=== PATIENT | female | born 1980 | race Caucasian/White ===

== ENCOUNTER 2023-12-30 21:52 | Inpatient (IN) | payer OTHER ==
[2023-12-30 22:29] VITALS: BMI 39.1
[2023-12-30] MEDS ORDERED: chlordiazePOXIDE HCL 25 MG CAPSULE PO PRN (22:53)
[2023-12-30] MEDS ORDERED: ONDANSETRON 8 MG TABLET (FP) PO PRN (23:09)
[2023-12-30] MEDS ORDERED: BENZOCAINE/MENTHOL (CHLORASEPTIC ) LOZENGE MM PRN (23:10)
[2023-12-30] MEDS ORDERED: guaiFENesin 600 MG TABLET.ER (FP) PO PRN (23:10)
[2023-12-30] MEDS ORDERED: BENZONATATE 200 MG CAPSULE PO PRN (23:10)
[2023-12-30] MEDS ORDERED: P-EPHED 60MG/TRIPROLIDI 2.5MG TABLET PO PRN (23:10)
[2023-12-30] MEDS ORDERED: LOPERAMIDE HCL 2 MG CAPSULE PO PRN (23:10)
[2023-12-30] MEDS ORDERED: DOCUSATE SODIUM 100 MG CAPSULE (FP) PO PRN (23:10)
[2023-12-30] MEDS ORDERED: DICYCLOMINE HCL 10 MG CAPSULE PO PRN (23:10)
[2023-12-30] MEDS ORDERED: NICOTINE POLACRILEX 2 MG LOZENGE BC PRN (23:10)
[2023-12-30] MEDS ORDERED: POLYETHYLENE GLYCOL (HEALTHYLAX) 3350 17 GM PACKET PO PRN (23:10)
[2023-12-30] MEDS ORDERED: TRIMETHOBENZAMIDE HCL 200MG/2ML INJ IM ONE (23:19)
[2023-12-30] MEDS: TRIMETHOBENZAMIDE HCL 200MG/2ML INJ IM ONE (23:27)
[2023-12-30] MEDS: chlordiazePOXIDE HCL 25 MG CAPSULE PO SCH (23:57)
[2023-12-30] MEDS: GABAPENTIN 400 MG CAPSULE PO SCH (23:57)
[2023-12-30] MEDS: PHENYTOIN NA EXTENDED 100 MG CAPSULE (FP) PO SCH (23:57)
[2023-12-30] MEDS: CYCLOBENZAPRINE HCL 10 MG TABLET (FP) PO SCH (23:57)
[2023-12-31] MEDS: LIDOCAINE PATCH REMOVAL MC SCH (00:27)
[2023-12-31] MEDS: FOLIC ACID 1 MG TABLET (FP) PO SCH (10:21)
[2023-12-31] MEDS: NICOTINE 7 MG/24 HOURS TOPICAL PATCH TD SCH (10:21)
[2023-12-31] MEDS: PRENATAL VITAMINS W/ FOLIC ACID TABLET (FP) PO SCH (10:21)
[2023-12-31] MEDS: LIDOCAINE 5% TOPICAL PATCH TP SCH (10:21)
[2023-12-31] MEDS ORDERED: NICOTINE POLACRILEX 4 MG GUM BUC PRN (11:22)
[2023-12-31 12:31] LABS: HEMATOCRIT 36.3 % (32.4-45.2); HEMOGLOBIN 12.5 GM/dL (10.7-15.3); MCH 31.6 pg (25.7-33.7); MCHC 34.3 g/dl (32.0-36.0); MEAN PLT VOLUME 9.2 fl (7.5-11.1); PLATELET COUNT 151 10^3/uL (134-434); RBC 3.95 M/mm3 (3.60-5.2); RDW 15.2 % (11.6-15.6); WHITE BLOOD COUNT 5.3 K/mm3 (4.0-10.0)
[2023-12-31 12:49] LABS: POTASSIUM 3.4 mmol/L (3.5-5.1)
[2023-12-31 13:13] LABS: ALBUMIN 3.1 g/dl (3.4-5.0); BLOOD UREA NITROGEN 9.6 mg/dL (7-18); CALCIUM 8.6 mg/dL (8.5-10.1)
[2023-12-31 13:16] LABS: CREATININE 0.6 mg/dL (0.55-1.3)
[2023-12-31 13:17] LABS: TOT PROT 6.4 g/dl (6.4-8.2)
[2023-12-31 13:19] LABS: BILIRUBIN,TOTAL 0.5 mg/dL (0.2-1)
[2023-12-31] MEDS: MELATONIN 5 MG TABLETS PO SCH (22:31)
[2023-12-31] MEDS: THIAMINE HCL 100 MG TABLET (FP) PO SCH (22:32)
[2024-01-01] MEDS: chlordiazePOXIDE HCL 25 MG CAPSULE PO SCH (05:56)
[2024-01-01 14:39] LABS: PH,URINE 6.5 (5.0-8.0); URINE APPEARANCE CLEAR; URINE BILIRUBIN NEGATIVE (NEGATIVE); URINE COLOR YELLOW; URINE GLUCOSE (UA) NEGATIVE (NEGATIVE); URINE KETONE NEGATIVE (NEGATIVE); URINE LEUK ESTERASE NEGATIVE (NEGATIVE); URINE NITRITE NEGATIVE (NEGATIVE); URINE PROTEIN NEGATIVE (NEGATIVE); URINE UROBILINOGEN 0.2 mg/dL (0.2-1.0)
[2024-01-02] MEDS ORDERED: chlordiazePOXIDE HCL 10 MG CAPSULE PO PRN
[2024-01-02] MEDS: chlordiazePOXIDE HCL 10 MG CAPSULE PO SCH (05:48)
[2024-01-02] MEDS: POTASSIUM CHLORIDE ORAL LIQUID 20 MEQ/15 ML PO ONE (18:18)
[2024-01-03] MEDS: chlordiazePOXIDE HCL 10 MG CAPSULE PO SCH (05:38)
[2024-01-03 09:46] VITALS: RESP 18
[2024-01-03 12:47] LABS: CALCIUM 8.8 mg/dL (8.5-10.1)
[2024-01-03 12:51] LABS: BLOOD UREA NITROGEN 14.9 mg/dL (7-18)
[2024-01-03 12:55] LABS: CREATININE 0.4 mg/dL (0.55-1.3)
[2024-01-03] MEDS: ACETAMINOPHEN 325 MG TABLET (FP) PO PRN (17:26)
[2024-01-04] MEDS: chlordiazePOXIDE HCL 10 MG CAPSULE PO ONE (05:44)
[2024-01-04 14:26] VITALS: BP 113/72; PULSE 103; TEMP 98
== END 2024-01-04 14:33 | disposition home or self-care (01) | DRG 773 ==
LOC: YASAS 21:52 → Y3N 23:26 → UNDOADMIN 23:26 → Y3N 12-31 01:58
PROVIDERS: ADMIT Allergy & Immunology; ATTEND Surgery
PROC: HZ2ZZZZ Detoxification Services for Substance Abuse Treatment (ICD-10-PCS; principal; 2023-12-31)
DX: F10.230 Alcohol dependence with withdrawal, uncomplicated (principal); F11.20 Opioid dependence, uncomplicated; F17.210 Nicotine dependence, cigarettes, uncomplicated; E87.6 Hypokalemia; R56.9 Unspecified convulsions; Z59.02 Unsheltered homelessness; Z88.0 Allergy status to penicillin; Z88.6 Allergy status to analgesic agent; Z88.8 Allergy status to other drugs, medicaments and biological substances
CPT/HCPCS: 36415; 80048; 80053; 80186; 80305; 81003; 85027; 86780; 87635; 87811; 93005; 93010